=== PATIENT | female | born 1995 | race Caucasian/White ===

== ENCOUNTER 2018-07-28 18:41 | Emergency (ER) | payer OTHER ==
[2018-07-28] MEDS ORDERED: Proparacaine 0.5% Ophth Soln 15 ML Bottle EYELF ONE (20:39)
--- NOTE | 2018-07-28 20:59 | EDM.PDOC ---
ED HPI GENERAL MEDICAL PROBLEM - General Chief Complaint: Eye Problems Stated Complaint: SCRATCHED EYE Time Seen by Provider: 07/28/18 20:35 Source of Information: Reports: Patient History Limitations: Reports: No Limitations - History of Present Illness INITIAL COMMENTS - FREE TEXT/NARRATIVE: 22-year-old female was working with some plastic when a piece popped up and hit her left eye 3 hours ago. She has some irritation and a small amount of blurriness laterally, along with some lateral erythema to the sclera. Just a small amount of discomfort. Onset: Sudden Duration: Hour(s): (3 hours ago) Associated Symptoms: Reports: No Other Symptoms left eye Pain Score (Numeric/FACES): 2 - Related Data Allergies Allergy/AdvReac Type Severity Reaction Status Date / Time No Known Allergies Allergy Verified 07/28/18 20:31 Home Meds: Home Meds Etonogestrel [Nexplanon] 68 mg SQ ASDIRECTED 07/28/18 [History] Past Medical History - Infectious Disease History Infectious Disease History: Reports: Chicken Pox - Past Surgical History HEENT Surgical History: Reports: Oral Surgery Social & Family History - Tobacco Use Smoking Status *Q: Never Smoker - Caffeine Use Caffeine Use: Reports: Coffee, Energy Drinks, Soda - Recreational Drug Use Recreational Drug Use: No ED ROS GENERAL - Review of Systems Review Of Systems: See Below Constitutional: Denies: Fever, Chills Respiratory: Reports: No Symptoms Cardiovascular: Reports: No Symptoms GI/Abdominal: Reports: No Symptoms Skin: Reports: No Symptoms ED EXAM GENERAL W FULL EYE - Physical Exam Exam: See Below Exam Limited By: No Limitations General Appearance: Alert, No Apparent Distress Eye Exam: Left Eye: Corneal Abrasion, Other (Some scleral injection laterally) Eyelids: Bilateral: Normal Appearance Conjunctiva & Sclera: Left: Injected (Laterally) Cornea Exam: Left: Corneal Abrasion, Examined with Flourescein (Under fluorescein exam, the patient has a linear superficial corneal abrasion as well as a small round abrasion over the lateral aspect of the cornea and sclera) Course - Vital Signs Last Recorded V/S: Last Vital Signs Temp 96.3 F 07/28/18 20:32 Pulse 67 07/28/18 20:32 Resp 16 07/28/18 20:32 BP 121/82 07/28/18 20:32 Pulse Ox 99 07/28/18 20:32 - Orders/Labs/Meds Meds: Medications Discontinued Medications Generic Name Dose Route Start Last Admin Trade Name Anu PRN Reason Stop Dose Admin Proparacaine HCl 1 ml 07/28/18 20:39 07/28/18 20:43 Proparacaine 0.5% Ophth Soln EYELF 07/28/18 20:40 1 ml ONETIME ONE Administration - Re-Assessments/Exams Free Text/Narrative Re-Assessment/Exam: 07/28/18 20:57 Patient was placed on gentamicin drops 2 drops 4 times a day through the , and she should recheck with optometry on Wednesday if still having symptoms. It is more likely this will completely heal over the weekend and no follow-up will be necessary. She can return anytime if worsening. Departure - Departure Time of Disposition: 21:13 Disposition: Home, Self-Care 01 Condition: Good Clinical Impression: Corneal abrasion Qualifiers: Encounter type: initial encounter Laterality: left Qualified Code(s): S05.02XA - Injury of conjunctiva and corneal abrasion without foreign body, left eye, initial encounter - Discharge Information Instructions: Corneal Abrasion, [id number] Referrals: PCP,None [Primary Care Provider] - Forms: ED Department Discharge Care Plan Goals: Use 2 drops in your left eye 4 times a day through the and recheck on Wednesday if not improving satisfactorily. Return sooner if worsening or you develop other concerns.
== END 2018-07-28 21:11 | disposition home or self-care (01) ==
LOC: JP.ED 18:41
DX: S05.02XA Injury of conjunctiva and corneal abrasion without foreign body, left eye, initial encounter (principal); W22.8XXA Striking against or struck by other objects, initial encounter
CPT/HCPCS: 99283; A9270